=== PATIENT | male | born 1950 | race Caucasian/White ===

== ENCOUNTER 2016-10-06 09:17 | Emergency (ER) | payer OTHER ==
[~2016-10-06] VITALS: Ht 177.8 cm; Wt 104.3 kg
[~2016-10-06 09:17] MED LIST: ASPIRIN81 M1 PO; LISINOPRIL10 M1 PO
[2016-10-06] MEDS ORDERED: LIPITOR10 MG PO (09:23)
== END 2016-10-06 12:02 | disposition home or self-care (01) ==
LOC: ED 09:17
DX: S05.41XA Penetrating wound of orbit with or without foreign body, right eye, initial encounter (principal); Z79.82 Long term (current) use of aspirin; W22.8XXA Striking against or struck by other objects, initial encounter; Y93.89 Activity, other specified; Y92.9 Unspecified place or not applicable; Y99.9 Unspecified external cause status

== ENCOUNTER 2016-10-14 10:19 | Emergency (ER) | payer OTHER ==
[~2016-10-14] VITALS: Ht 177.8 cm; Wt 95.3 kg
[~2016-10-14 10:19] MED LIST changes: +LIPITOR10 MG PO
== END 2016-10-14 11:05 | disposition home or self-care (01) ==
LOC: ED 10:19
DX: S01.81XD Laceration without foreign body of other part of head, subsequent encounter (principal); Z79.899 Other long term (current) drug therapy; Z79.82 Long term (current) use of aspirin; X58.XXXD Exposure to other specified factors, subsequent encounter